=== PATIENT | female | born 1985 | race African-American/Black ===

== ENCOUNTER 2016-10-05 20:47 | Emergency (ER) | payer SELFPAY ==
[~2016-10-05] VITALS: Ht 167.6 cm; Wt 99.0 kg
[~2016-10-05 20:47] MED LIST: AMLO2.5T PO; AMLO5TAB2 PO; CLON0.2T PO; HYDR12.57 PO; LISI-519 PO; LISI2.5T3 PO
[2016-10-05 20:49] VITALS: BP 177/114; PULSE 89; RESP 18; TEMP 98.9; O2SAT 96
== END 2016-10-05 23:34 | disposition left against medical advice (07) ==
LOC: NED 20:47
DX: R60.0 Localized edema (principal)
CPT/HCPCS: 99281

== ENCOUNTER 2016-11-13 19:49 | Emergency (ER) | payer SELFPAY ==
[~2016-11-13] VITALS: Ht 160 cm; Wt 95.0 kg
[2016-11-13 19:51] VITALS: BP 187/115; PULSE 73; RESP 18; TEMP 98.6; O2SAT 100
--- NOTE | 2016-11-13 21:12 | PD ---
HPI Chief Complaint: Edema Time Seen by Provider: 21:02 Travel History International Travel<30 days: No Contact w/Intl Traveler<30days: No Traveled to known affect area: No History of Present Illness HPI The patient is a 31 year old female who presents to the [facility] emergency department with a history of bilateral lower extremity swelling that she reports has been coming and going and gradually getting worse over the last 2-3 weeks. She reports that initially she thought it might be related to gout as she reports that she was diagnosed with gout in the left foot a month ago. She reports that she was treated with a steroid and another medication that she cannot recall the name of. She reports that she has not followed up with a primary care physician as she does not have one currently. The patient reports that she does have a history of hypertension. She has been taking her amlodipine and clonidine on a regular basis and reports that she did take it today. She denies having any associated chest pain, chest pressure, or shortness of breath. She reports that her lower extremity edema is slightly worse in the left leg compared to the right. She denies having any pain in her joints at this time. She denies having any recent fevers, cough, congestion, neck pain, abdominal pain, vomiting, diarrhea, urinary symptoms, or neurologic symptoms. LMP: 4 months ago, reportedly she has a history of irregular cycles PFSH Past Medical History Narrative Medical The patient's past medical history is significant for endometriosis, polycystic ovarian syndrome, hypertension, obesity, gout. Arthritis: No Asthma: No Autoimmune Disease: No Anxiety: Yes Depression: No Heart Rhythm Problems: No Cancer: No Cardiovascular Problems: Yes (HTN) High Cholesterol: No Chemotherapy: No Chest Pain: Yes (periodically) Congestive Heart Failure: No COPD: No Cerebrovascular Accident: No Diabetes: No Diminished Hearing: No Endocrine: No Gastrointestinal Disorders: Yes GERD: No Genitourinary: No Headaches: Yes Hiatal Hernia: No Hypertension: Yes Immune Disorder: No Kidney Stones: No Musculoskeletal: Yes Neurologic: Yes Psychiatric: Yes Reproductive: Yes (endometriosis, polycystic ovaries) Respiratory: No Immunizations Current: No Migraines: Yes Radiation Therapy: No Renal Failure: No Seizures: No Sleep Apnea: No Thyroid Disease: No Ulcer: No ?: Not LMP: IRREG-2 or 3 a year : 2 Para: 0 Miscarriage: 2 : 0 Past Surgical History Narrative Surgical The patient's past surgical history is significant for a 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 ) Social History Alcohol Use: Yes (2 times month ) Tobacco Use: No Substance Use: No Allergies-Medications (Allergen,Severity, Reaction): Coded Allergies: Aspirin (Verified Allergy, Severe, HIVES, 04/20/16) Reported Meds & Prescriptions Reported Meds & Active Scripts Active Reported Amlodipine (Amlodipine Besylate) 2.5 Mg Tab 2.5 Mg PO DAILY Clonidine (Clonidine HCl) 0.2 Mg Tab 0.2 Mg PO BID Review of Systems Except as stated in HPI: all other systems reviewed are Neg General / Constitutional: No: Fever Eyes: No: Visual changes HENT: No: Headaches Cardiovascular: Positive: Edema, No: Chest Pain or Discomfort Respiratory: No: Shortness of Breath Gastrointestinal: No: Abdominal Pain Genitourinary: No: Dysuria Musculoskeletal: Positive: Edema, No: Myalgias, Arthralgias, Limited ROM, Pain Skin: No Rash Neurologic: No: Weakness Psychiatric: No: Depression Endocrine: No: Polydipsia Hematologic/Lymphatic: No: Easy Bruising Physical Exam Narrative General: The patient is a well-developed well-nourished female in no acute distress. Head and Neck exam: Head is normocephalic atraumatic. Eyes: EOMI, pupils are equal round and reactive to light. Nose: Midline septum with pink mucous membranes Mouth: Dentition unremarkable. Moist mucus membranes. Posterior oropharynx is not erythematous. No tonsillar hypertrophy. Uvula midline. Airway patent. Neck: No palpable lymphadenopathy. No nuchal rigidity. No thyromegaly. Cardiovascular: Regular rate and rhythm without murmurs, gallops, or rubs. No pulse deficit to the extremities and simultaneous auscultation and palpation of her radial artery. Lungs: Clear to auscultation bilaterally. No wheezes, rhonchi, or rales. Abdomen: Soft, without tenderness to palpation in all 4 quadrants of the abdomen. No guarding, rebound, or rigidity. Normal bowel sounds are audible. No tenderness on palpation of McBurney's point. Negative [place] sign. Extremities: No clubbing or cyanosis, the patient has 1+ pitting edema bilateral lower extremities. 2+ pulses in all 4 extremities. No calf tenderness on palpation. Back: No costovertebral angle tenderness to palpation. Neurologic Exam: Grossly nonfocal. Skin Exam: No rash noted. Intact skin that is warm and dry. Data Data Last Documented VS Vital Signs Date Time Temp Pulse Resp B/P Pulse Ox O2 Delivery O2 Flow Rate FiO2 11/13/16 19:51 98.6 73 18 187/115 100 Room Air Orders Complete Blood Count With Diff (11/13/16 21:05) Comprehensive Metabolic Panel (11/13/16 21:05) B-Type Natriuretic Peptide (11/13/16 21:05) Magnesium (Mg) (11/13/16 21:05) Thyroid Stimulating Hormone (11/13/16 21:05) Iv Access Insert/Monitor (11/13/16 21:05) Ecg Monitoring (11/13/16 21:05) Oximetry (11/13/16 21:05) Us Leg Venous Doppler Bilat (11/13/16 21:05) Ed Urine Pregnancytest Poc (11/13/16 21:12) MDM Medical Decision Making Medical Screen Exam Complete: Yes Emergency Medical Condition: Yes Medical Record Reviewed: Yes Differential Diagnosis Endocrine disorder such as hypothyroidism with myxedema, versus hypoalbuminemia , versus valvular abnormality of the veins in the legs, versus DVT, versus renal insufficiency, versus congestive heart failure Narrative Course During the course of the patients emergency department visit, the patients history, examination, and differential diagnosis were reviewed with the patient. The patient had IV access obtained and blood work sent for analysis. The patient was placed on a director of counseling with oximetry and blood pressure monitoring. An ultrasound to rule out DVT was ordered. I explained to the patient's laboratory studies would be ordered, however when I walked out of the room, the patient refused to have IV access obtained and blood work sent for analysis. She reports that she is very difficult to obtain IV access and blood from. She was made aware that her evaluation is very limited given the fact that she is refusing laboratory studies. Radiology studies were reviewed and remarkable for an ultrasound of bilateral lower extremities that is read by the reading radiologist as negative for DVT. The patient is instructed to wear compression stockings. The patient was instructed to elevate her legs frequently when she is sitting. The patient is instructed to follow-up with a primary care physician. The patient is given the name of the outpatient referral doctor, Dr. Leon for follow-up. She is also given information regarding patient assistance and other local clinics for follow-up. She was given a prescription for hydrochlorothiazide to be taken over the next week to improve her blood pressure as well as help with edema. The patient is resting comfortably and feels better, is alert and in no distress. The patients results and examination findings were discussed with the patient. The repeat examination is unremarkable and benign. The history, exam, diagnostic testing, and current condition do not suggest any significant pathology to warrant further testing, continued ED treatment, admission, or surgical evaluation at this point. The vital signs have been stable. The patient does not have uncontrollable pain, intractable vomiting, or other significant symptoms. The patient's condition is stable and appropriate for discharge. The patient will pursue further outpatient evaluation with a primary care physician or other designated or consulting physician as indicated in the discharge instructions. The patient expressed understanding and was agreeable with this plan. Diagnosis Primary Impression: Leg edema Additional Impression: Uncontrolled hypertension Referrals: Nimesh Leon MD 3 days [facility] 3 days Patient Assistance Program 3 days Patient Instructions: Chronic Hypertension (ED), General Instructions, Leg Edema (ED) Med/Other Pt SpecificInfo: Prescription(s) given Scripts Hydrochlorothiazide 25 Mg Tab25 Mg PO DAILY #7 TAB Ref 0 Prov:Haley Yeager MD 11/13/16 Disposition: 01 DISCHARGE HOME Condition: Stable Haley Yeager MD Nov 13, 2016 21:12
--- NOTE | 2016-11-13 22:39 | RADRPT ---
EXAM DATE/TIME: 11/13/2016 22:00 [place] COMPARISON: No previous studies available for comparison. INDICATIONS : Bilateral leg edema. MEDICAL HISTORY : Hypertension. Migraine. Endometriosis. Polycystic ovaries. MRSA. Anxiety. SURGICAL HISTORY : Cholecystectomy. Heart valve surgery. Laproscopic abdomen surgery. ENCOUNTER: Initial ACUITY: 3 weeks PAIN SCORE: 0/10 LOCATION: Bilateral legs. TECHNIQUE: Venous ultrasound of the left and right leg was performed from the inguinal ligament to the proximal calf. Real-time, color Doppler and spectral tracing, compression and augmentation techniques were us ed. FINDINGS: RIGHT LEG: No echogenic clot is seen in the lumen of the common femoral, femoral, popliteal, and posterior tibia l veins. There is a normal response of the venous system to proximal and distal augmentation and res piration. Limited compressibility. LEFT LEG: No echogenic clot is seen in the lumen of the common femoral, femoral, popliteal, and posterior tibia l veins. There is a normal response of the venous system to proximal and distal augmentation and res piration. Limited compressibility. CONCLUSION: Very Limited study but no definite thrombus identified in either lower extremity. Andres Morales MD on November 13, 2016 at 22:37 Board Certified Radiologist. This report was verified electronically.
[2016-11-13] MEDS ORDERED: HYDR25TA5 PO (22:52)
[2016-11-13 23:12] VITALS: BP 142/83; PULSE 65; RESP 14; O2SAT 100
== END 2016-11-13 23:13 | disposition home or self-care (01) ==
LOC: NEPC 19:49
DX: R60.9 Edema, unspecified (principal); I10 Essential (primary) hypertension; F41.9 Anxiety disorder, unspecified; Z79.899 Other long term (current) drug therapy; Z88.6 Allergy status to analgesic agent
CPT/HCPCS: 93970

== ENCOUNTER 2016-12-05 21:12 | Emergency (ER) | payer SELFPAY ==
[~2016-12-05 21:12] MED LIST changes: -AMLO5TAB2 PO; -HYDR12.57 PO; +HYDR25TA5 PO; -LISI-519 PO; -LISI2.5T3 PO
[2016-12-05 21:15] VITALS: BP 181/98; PULSE 79; RESP 18; TEMP 98.4; O2SAT 98
[2016-12-06] VITALS: BP 165/95; PULSE 70; RESP 16; TEMP 97.8; O2SAT 100
[2016-12-06] MEDS ORDERED: HYDR25TA5 PO (01:22)
--- NOTE | 2016-12-06 01:23 | PD ---
HPI Chief Complaint: Edema Time Seen by Provider: 00:19 Travel History International Travel<30 days: No Contact w/Intl Traveler<30days: No Traveled to known affect area: No History of Present Illness HPI The patient is 31 year old female who presents to the [facility] emergency department with a history of lower extremity edema that recurred 2 days ago. The patient was seen in the emergency department related to this lower extremity edema on November 13. Laboratory studies and an ultrasound of bilateral lower extremities were ordered. The patient refused IV access, however ultrasound was done which showed no evidence of DVT. The patient was discharged home with a short course of hydrochlorothiazide and instructed to follow-up with her primary care physician. He reports that she was not able to afford to follow-up with her primary care physician. She reports that the edema did improve on the hydrochlorothiazide that was administered. In review of systems otherwise, the patient denies any recent fevers, cough, congestion, neck pain, chest pain, shortness of breath, abdominal pain, vomiting, diarrhea, urinary symptoms, or neurologic symptoms. Last menstrual cycle: 4 months ago. She reports that her cycles are irregular related to polycystic ovarian syndrome. [facility] Past Medical History Narrative Medical The patient's past medical history is significant for endometriosis, polycystic ovarian syndrome, hypertension, obesity, gout. Arthritis: No Asthma: No Autoimmune Disease: No Anxiety: Yes Depression: No Heart Rhythm Problems: No Cancer: No Cardiovascular Problems: Yes (HTN) High Cholesterol: No Chemotherapy: No Chest Pain: Yes (periodically) Congestive Heart Failure: No COPD: No Cerebrovascular Accident: No Diabetes: No Diminished Hearing: No Endocrine: No Gastrointestinal Disorders: Yes GERD: No Gout: Yes Genitourinary: No Headaches: Yes Hiatal Hernia: No Hypertension: Yes Immune Disorder: No Kidney Stones: No Musculoskeletal: Yes Neurologic: Yes Psychiatric: Yes Reproductive: Yes (endometriosis, PCOS) Respiratory: No Immunizations Current: No Migraines: Yes Radiation Therapy: No Renal Failure: No Seizures: No Sleep Apnea: No Thyroid Disease: No Ulcer: No Tetanus Vaccination: < 5 Years Influenza Vaccination: Yes ?: Not LMP: irregular-08/21/16 : 2 Para: 0 Miscarriage: 2 : 0 Ovarian Cysts: Yes Past Surgical History Narrative Surgical The patient's past surgical history is significant for a 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 ) Social History Alcohol Use: Yes (2 times month ) Tobacco Use: No Substance Use: No Allergies-Medications (Allergen,Severity, Reaction): Coded Allergies: aspirin (Unverified Allergy, Severe, HIVES, 12/05/16) Reported Meds & Prescriptions Reported Meds & Active Scripts Active Hydrochlorothiazide 25 Mg Tab 25 Mg PO DAILY Reported Amlodipine (Amlodipine Besylate) 2.5 Mg Tab 2.5 Mg PO DAILY Clonidine (Clonidine HCl) 0.2 Mg Tab 0.2 Mg PO BID Review of Systems Except as stated in HPI: all other systems reviewed are Neg General / Constitutional: No: Fever Eyes: No: Visual changes HENT: No: Headaches Cardiovascular: Positive: Edema, No: Chest Pain or Discomfort Respiratory: No: Shortness of Breath Gastrointestinal: No: Abdominal Pain Genitourinary: No: Dysuria Musculoskeletal: No: Pain Skin: No Rash Neurologic: No: Weakness Psychiatric: No: Depression Endocrine: No: Polydipsia Hematologic/Lymphatic: No: Easy Bruising Physical Exam Narrative General: The patient is a well-developed well-nourished female in no acute distress. Head and Neck exam: Head is normocephalic atraumatic. Eyes: EOMI, pupils are equal round and reactive to light. Nose: Midline septum with pink mucous membranes Mouth: Dentition unremarkable. Moist mucus membranes. Posterior oropharynx is not erythematous. No tonsillar hypertrophy. Uvula midline. Airway patent. Neck: No palpable lymphadenopathy. No nuchal rigidity. No thyromegaly. Cardiovascular: Regular rate and rhythm without murmurs, gallops, or rubs. No pulse deficit to the extremities and simultaneous auscultation and palpation of her radial artery. Lungs: Clear to auscultation bilaterally. No wheezes, rhonchi, or rales. Abdomen: Soft, without tenderness to palpation in all 4 quadrants of the abdomen. No guarding, rebound, or rigidity. Normal bowel sounds are audible. No tenderness on palpation of McBurney's point. Extremities: No clubbing or cyanosis. The patient has 1+ pitting edema bilateral lower extremities. 2+ pulses in all 4 extremities. No calf tenderness on palpation. Back: No costovertebral angle tenderness to palpation. Neurologic Exam: Grossly nonfocal. Skin Exam: No rash noted. Intact skin that is warm and dry. Data Data Last Documented VS Vital Signs Date Time Temp Pulse Resp B/P Pulse Ox O2 Delivery O2 Flow Rate FiO2 12/06/16 00:00 72 16 100 Room Air 12/06/16 00:00 97.8 165/95 Orders Electrocardiogram (12/06/16 00:48) Complete Blood Count With Diff (12/06/16 00:48) Comprehensive Metabolic Panel (12/06/16 00:48) B-Type Natriuretic Peptide (12/06/16 00:48) Lipase (12/06/16 00:48) Urinalysis - C+S If Indicated (12/06/16 00:48) Magnesium (Mg) (12/06/16 00:48) Thyroid Stimulating Hormone (12/06/16 00:48) Iv Access Insert/Monitor (12/06/16 00:48) Ecg Monitoring (12/06/16 00:48) Oximetry (12/06/16 00:48) Ed Urine Pregnancytest Poc (12/06/16 00:48) Urine Culture (12/06/16 01:05) Labs Laboratory Tests Test 12/06/16 12/06/16 01:05 02:05 Urine Color YELLOW Urine Turbidity HAZY Urine pH 5.5 Urine Specific [place] 1.032 Urine Protein TRACE mg/dL Urine Glucose (UA) NEG mg/dL Urine Ketones NEG mg/dL Urine Occult Blood NEG Urine Nitrite NEG Urine Bilirubin NEG Urine Urobilinogen 2.0 MG/DL Urine Leukocyte Esterase MOD Urine RBC 9 /hpf Urine WBC 10 /hpf Urine Squamous Epithelial 5 /hpf Cells Urine Bacteria RARE /hpf Urine Mucus MOD /lpf Microscopic Urinalysis Comment CULTURE INDICATED White Blood Count 9.6 TH/MM3 Red Blood Count 4.90 MIL/MM3 Hemoglobin 13.6 GM/DL Hematocrit 40.6 % Mean Corpuscular Volume 82.7 FL Mean Corpuscular Hemoglobin 27.7 PG Mean Corpuscular Hemoglobin 33.6 % Concent Red Cell Distribution Width 14.1 % Platelet Count 252 TH/MM3 Mean Platelet Volume 10.0 FL Neutrophils (%) (Auto) 63.4 % Lymphocytes (%) (Auto) 27.3 % Monocytes (%) (Auto) 6.5 % Eosinophils (%) (Auto) 1.9 % Basophils (%) (Auto) 0.9 % Neutrophils # (Auto) 6.1 TH/MM3 Lymphocytes # (Auto) 2.6 TH/MM3 Monocytes # (Auto) 0.6 TH/MM3 Eosinophils # (Auto) 0.2 TH/MM3 Basophils # (Auto) 0.1 TH/MM3 CBC Comment DIFF FINAL Differential Comment Sodium Level 137 MEQ/L Potassium Level 3.8 MEQ/L Chloride Level 104 MEQ/L Carbon Dioxide Level 25.7 MEQ/L Anion Gap 7 MEQ/L Blood Urea Nitrogen 13 MG/DL Creatinine 0.78 MG/DL Estimat Glomerular Filtration 103 ML/MIN Rate Random Glucose 82 MG/DL Calcium Level 9.3 MG/DL Magnesium Level 1.9 MG/DL Total Bilirubin 0.3 MG/DL Aspartate Amino Transf 16 U/L (AST/SGOT) Alanine Aminotransferase 23 U/L (ALT/SGPT) Alkaline Phosphatase 89 U/L B-Type Natriuretic Peptide 12 PG/ML Total Protein 8.8 GM/DL Albumin 3.6 GM/DL Lipase 230 U/L Thyroid Stimulating Hormone 1.290 uIU/ML 3rd Gen [facility] Medical Decision Making Medical Screen Exam Complete: Yes Emergency Medical Condition: Yes Medical Record Reviewed: Yes Differential Diagnosis Congestive heart failure, versus renal failure, versus hypoalbuminemia, versus exit edema, versus valvular abnormality of the veins of the leg causing peripheral edema Narrative Course During the course of the patients emergency department visit, the patients history, examination, and differential diagnosis were reviewed with the patient. The patient had IV access obtained and blood work sent for analysis. The patient was placed on a clinical material handler with oximetry and blood pressure monitoring. The patient was agreeable at this time to have IV access and blood work sent during this emergency department visit. The patient's electronic medical record was reviewed and an ultrasound of bilateral lower extremities was negative for DVT on November 13. The patient had an ECG done today that shows a sinus rhythm with a sinus arrhythmia, no acute ST segment elevation, QRS duration is 109 ms, QTC 457 ms. The patient was initially provided hydrochlorothiazide, 25 mg by mouth 1. The patients laboratory studies were reviewed and remarkable for a CBC that is within normal limits. CMP is within normal limits, lipase 2:30, TSH 1.29, BNP is 12, urinalysis shows 9 rbc's, 10 wbc's, rare bacteria, culture indicated. The patient will be discharged home with a prescription for Macrobid, and hydrochlorothiazide. The patient is instructed regarding the importance of close follow-up with her primary care physician. The patient is resting comfortably and feels better, is alert and in no distress. The patients results and examination findings were discussed with the patient. The repeat examination is unremarkable and benign. The history, exam, diagnostic testing, and current condition do not suggest any significant pathology to warrant further testing, continued ED treatment, admission, or surgical evaluation at this point. The vital signs have been stable. The patient does not have uncontrollable pain, intractable vomiting, or other significant symptoms. The patient's condition is stable and appropriate for discharge. The patient will pursue further outpatient evaluation with a primary care physician or other designated or consulting physician as indicated in the discharge instructions. The patient expressed understanding and was agreeable with this plan. Diagnosis Primary Impression: Leg edema Additional Impression: Urinary tract infection Qualified Code: N30.00 - Acute cystitis without hematuria Referrals: Primary Care Physician 3 days Patient Instructions: General Instructions, Leg Edema (ED), Urinary Tract Infection in Women (ED) Med/Other Pt SpecificInfo: Prescription(s) given Scripts Nitrofurantoin Monohydrate Macrocrystals (Macrobid)100 Mg [id number] Mg PO BID 7 Days Ref 0 Prov:Haley Yeager MD 12/06/16 Hydrochlorothiazide 25 Mg Tab25 Mg PO DAILY #30 TAB Ref 0 Prov:Haley Yeager MD 12/06/16 Disposition: 01 DISCHARGE HOME Condition: Stable Haley Yeager MD Dec 06, 2016 01:23
[2016-12-06 01:24] LABS: BACTERIA, URINE RARE /hpf; BLOOD, URINE NEG (NEG); GLUCOSE,URINE NEG (NEG); KETONE, URINE NEG (NEG); MUCUS URINE MOD /lpf (OCC); NITRITE,URINE NEG (NEG); PH, URINE 5.5 (5.0-8.5); SQUAMOUS EPITHELIAL CELL URINE 5 /hpf (0-5); URINE COLOR YELLOW (YELLW/STRAW)
[2016-12-06 01:25] LABS: COMMENT (UR) CULTURE INDICATED; CULTURE IF INDICATED CULTURE INDICATED
[2016-12-06 02:14] LABS: AUTOMATED NEUTROPHIL # 6.1 TH/MM3 (1.8-7.7); BASOPHIL # 0.1 TH/MM3 (0-0.2); BASOPHIL % 0.9 % (0.0-2.0); EOSINOPHIL # 0.2 TH/MM3 (0-0.4); EOSINOPHIL % 1.9 % (0.0-4.0); HEMATOCRIT 40.6 % (35.0-46.0); HEMO FLAGS DIFF FINAL; LYMPH % 27.3 % (9.0-44.0); LYMPHOCYTE # 2.6 TH/MM3 (1.0-4.8); MEAN CELL VOLUME 82.7 FL (80.0-100.0); MEAN CORPUSCULAR HEMOGLOBIN 27.7 PG (27.0-34.0); MEAN CORPUSCULAR HGB CONC 33.6 % (32.0-36.0); MONO % 6.5 % (0.0-8.0); NEUT % 63.4 % (16.0-70.0); PLATELET COUNT 252 TH/MM3 (150-450); RED CELL DISTRIBUTION WIDTH 14.1 % (11.6-17.2); WHITE BLOOD COUNT 9.6 TH/MM3 (4.0-11.0)
[2016-12-06 02:37] LABS: ALT (GPT) 23 U/L (10-53); ANION GAP 7 MEQ/L (5-15); AST (GOT) 16 U/L (15-37); BICARBONATE 25.7 MEQ/L (21.0-32.0); BLOOD UREA NITROGEN 13 MG/DL (7-18); CHLORIDE 104 MEQ/L (98-107); GLOMERULAR FILTRATION RATE 103 ML/MIN (>89); MAGNESIUM 1.9 MG/DL (1.5-2.5); POTASSIUM 3.8 MEQ/L (3.5-5.1); SODIUM (NA) 137 MEQ/L (136-145)
[2016-12-06 02:46] LABS: ALKALINE PHOSPHATASE 89 U/L (45-117); TOTAL BILIRUBIN ADULT 0.3 MG/DL (0.2-1.0)
[2016-12-06] MEDS ORDERED: MACR100C2 PO (03:11)
[2016-12-06] MEDS ORDERED: POTA1TAB4 PO (03:13)
[2016-12-06] MEDS ORDERED: HYDROCHLOROTHIAZIDE 25 MG TAB PO ONE (03:15)
[2016-12-06 03:25] VITALS: BP 155/90
--- NOTE | 2016-12-06 15:09 | EKG ---
Date Performed: 12/06/2016 Time Performed: 01:17:20 PTAGE: 31 years EKG: Sinus rhythm WITH SINUS ARRHYTHMIA MODERATE VOLTAGE CRITERIA FOR LVH, CONSIDER NORMAL VARIANT BORDERLINE ECG PREVIOUS TRACING : 11/09/2015 01.23 Compared to prior tracing no significant change DOCTOR: Edmond Cazares Interpretating Date/Time 12/06/2016 15:08:12
[2016-12-07] MEDS ORDERED: MACR100C2 PO (10:19)
[2016-12-07] MEDS ORDERED: POTA1TAB4 PO (10:19)
[2016-12-07] MEDS ORDERED: HYDR25TA5 PO (10:19)
== END 2016-12-06 03:36 | disposition home or self-care (01) ==
LOC: NEPE 21:12
DX: R60.0 Localized edema (principal); N30.00 Acute cystitis without hematuria; I10 Essential (primary) hypertension; M10.9 Gout, unspecified
CPT/HCPCS: 80053; 81001; 83690; 83735; 83880; 84443; 84703; 85025; 87086; 93005

== ENCOUNTER 2017-02-26 17:50 | Emergency (ER) | payer SELFPAY ==
[~2017-02-26 17:50] MED LIST changes: +MACR100C2 PO
[2017-02-26 17:52] VITALS: BP 178/103; PULSE 82; RESP 12; TEMP 98.4; O2SAT 98
--- NOTE | 2017-02-26 18:25 | PD ---
HPI Chief Complaint: Injury Time Seen by Provider: 18:15 Travel History International Travel<30 days: No Contact w/Intl Traveler<30days: No Traveled to known affect area: No History of Present Illness HPI 31-year-old female presents for evaluation of right ankle pain. It started 1 week ago when she was doing a breast cancer well. Pain is an aching pain on the medial lateral aspect of the right ankle, worse when walking. She denies any trauma. No fevers, chills. No other complaints. PFSH Past Medical History Arthritis: No Asthma: No Autoimmune Disease: No Anxiety: Yes Depression: No Heart Rhythm Problems: No Cancer: No Cardiovascular Problems: Yes (HTN) High Cholesterol: No Chemotherapy: No Chest Pain: Yes (periodically) Congestive Heart Failure: No COPD: No Cerebrovascular Accident: No Diabetes: No Diminished Hearing: No Endocrine: No Gastrointestinal Disorders: Yes GERD: No Gout: Yes Genitourinary: No Headaches: Yes Hiatal Hernia: No Hypertension: Yes Immune Disorder: No Kidney Stones: No Musculoskeletal: Yes Neurologic: Yes Psychiatric: Yes Reproductive: Yes (endometriosis, PCOS) Respiratory: No Immunizations Current: No Migraines: Yes Radiation Therapy: No Renal Failure: No Seizures: No Sleep Apnea: No Thyroid Disease: No Ulcer: No ?: Not : 2 Para: 0 Miscarriage: 2 : 0 Ovarian Cysts: Yes Past Surgical History Abdominal Surgery: No AICD: No Arteriovenous Shunt: No Cardiac Surgery: Yes (heart valve) Cholecystectomy: Yes Ear Surgery: No Endocrine Surgery: No Eye Surgery: No Genitourinary Surgery: No Gynecologic Surgery: No Insulin Pump: No Joint Replacement: No Oral Surgery: No Pacemaker: No Thoracic Surgery: No Valve Replacement: Yes (heart valve repaired) Other Surgery: Yes (Laproscopic abd. ) Social History Alcohol Use: Yes (2 times month ) Tobacco Use: No Substance Use: No Allergies-Medications (Allergen,Severity, Reaction): Coded Allergies: aspirin (Unverified Allergy, Severe, HIVES, 12/05/16) Reported Meds & Prescriptions Reported Meds & Active Scripts Active Hydrochlorothiazide 25 Mg Tab 25 Mg PO DAILY Reported Amlodipine (Amlodipine Besylate) 2.5 Mg Tab 2.5 Mg PO DAILY Clonidine (Clonidine HCl) 0.2 Mg Tab 0.2 Mg PO BID Review of Systems Except as stated in HPI: all other systems reviewed are Neg Physical Exam Narrative GENERAL: Well-developed well-nourished female in no acute distress SKIN: Warm and dry. GASTROINTESTINAL: Abdomen soft, non-tender, nondistended. Hepatic and splenic margins not palpable. MUSCULOSKELETAL: No obvious deformities. Tender to palpation to the medial and lateral aspect of the right ankle, pain with dorsi and plantar flexion. The Achilles tendon is intact. Distal sensation, pulses preserved. NEUROLOGICAL: Awake and alert. No obvious cranial nerve deficits. Motor grossly within normal limits. Normal speech. Data Data Last Documented VS Vital Signs Date Time Temp Pulse Resp B/P (MAP) Pulse Ox O2 Delivery O2 Flow Rate FiO2 02/26/17 17:52 98.4 82 12 178/103 (128) 98 Orders Orders Ankle, Complete ([facility]) (02/26/17 ) Ed Discharge Order (02/26/17 18:31) Crutches (02/26/17 18:32) Splint Or Brace Apply/Monitor (02/26/17 18:32) MDM Medical Decision Making Medical Screen Exam Complete: Yes Emergency Medical Condition: Yes Medical Record Reviewed: Yes Interpretation(s) CONCLUSION: 1. Diffuse soft tissue swelling with no fracture. 2. 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 Differential Diagnosis Right ankle strain, sprain, inflammatory arthritis, infectious arthritis Narrative Course Examination and history are consistent with strain to the right ankle. She'll be discharged with ankle stirrup splint and crutches. Diagnosis Primary Impression: Right ankle strain Qualified Codes: S96.911A - Strain of unspecified muscle and tendon at ankle and foot level, right foot, initial encounter Additional Instructions: Crutches and splint as needed. Ice several times a day 20 minutes at a time, elevate, rest, follow-up with primary care physician in 2 weeks for recheck. Med/Other Pt SpecificInfo: Orthopedic Instructions Disposition: 01 DISCHARGE HOME Condition: Stable Manjit Wellington Feb 26, 2017 18:25
--- NOTE | 2017-02-26 18:29 | RADRPT ---
EXAM DATE/TIME: 02/26/2017 18:11 [facility] COMPARISON: No previous studies available for comparison. INDICATIONS : Right ankle pain after breast cancer walk. MEDICAL HISTORY : None. SURGICAL HISTORY : None. ENCOUNTER: Initial ACUITY: 4 - 6 days PAIN SCORE: 8/10 LOCATION: Right ankle. FINDINGS: Three view exam was performed of the right ankle. The bony structures are in normal alignment. No n o evidence of fracture or dislocation. There is diffuse soft tissue swelling. The ankle mortise is i ntact. No radiopaque foreign bodies are seen. Bony mineralization is normal. Decreased Boehler's an gle with a flatfoot deformity. CONCLUSION: 1. Diffuse soft tissue swelling with no fracture. 2. 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 Michel Najera MD on February 26, 2017 at 18:25 Board Certified Radiologist. This report was verified electronically.
== END 2017-02-26 18:52 | disposition home or self-care (01) ==
LOC: NEPK 17:50
DX: S96.911A Strain of unspecified muscle and tendon at ankle and foot level, right foot, initial encounter (principal); X58.XXXA Exposure to other specified factors, initial encounter
CPT/HCPCS: 73610; 99283; E0113; L1906